=== PATIENT | female | born 1980 | race Two or more races ===

== ENCOUNTER 2019-07-01 10:37 | Emergency (ER) | payer OTHER ==
--- NOTE | 2019-07-01 10:50 | ER Document Report ---
ED Medical Screen (RME) - General Chief Complaint: Cough Stated Complaint: COUGH,CONGESTION Time Seen by Provider: 07/01/19 10:44 Mode of Arrival: Ambulatory Information source: Patient Notes: 39-year-old female patient presenting to the emergency department multiple complaints. Complaint #1 is cough, congestion and body aches that have been ongoing for 2 weeks. Patient reports no fevers currently but did have a fever about a week ago. Complaint #2 is mid to low abdominal pain, left-sided vaginal pain and occasional dysuria. Patient reports the symptoms have been ongoing for 2 days. Patient does report history of asthma, she is concerned she may have bronchitis. Exam: Lung sounds clear and equal bilaterally, no increased work of breathing. I have greeted and performed a rapid initial assessment of this patient. A comprehensive ED assessment and evaluation of the patient, analysis of test results and completion of the medical decision making process will be conducted by additional ED providers. I have specifically instructed the patient or family members with the patient to immediately return to any nursing staff should anything change in the patient's condition or with their chief complaint. Physical Exam - Vital signs Vitals: Temp Pulse Resp BP Pulse Ox 98.7 F 91 18 143/80 H 100 07/01/19 10:44 07/01/19 10:44 07/01/19 10:44 07/01/19 10:44 07/01/19 10:44 Course - Vital Signs Vital signs: Temp Pulse Resp BP Pulse Ox 98.7 F 91 18 143/80 H 100 07/01/19 10:44 07/01/19 10:44 07/01/19 10:44 07/01/19 10:44 07/01/19 10:44
[2019-07-01 11:30] LABS: APPEARANCE,URINE CLOUDY; BILIRUBIN,URINE NEGATIVE (NEGATIVE); COLOR,URINE YELLOW; GLUCOSE, URINE NEGATIVE (NEGATIVE); KETONES,URINE NEGATIVE (NEGATIVE); LEUKOCYTE ESTERASE,URINE LARGE (NEGATIVE); NITRITE,URINE NEGATIVE (NEGATIVE); PROTEIN,URINE 30 mg/dL (NEGATIVE); URINE SPECIFIC GRAVITY 1.028; UROBILINOGEN,URINE NEGATIVE mg/dL (<2.0)
--- NOTE | 2019-07-01 11:32 | RADIOLOGY REPORT (SQ) ---
EXAM DESCRIPTION: CHEST 2 VIEWS COMPLETED DATE/TIME: 07/01/2019 11:22 am REASON FOR STUDY: cough x2 weeks COMPARISON: None. EXAM PARAMETERS: NUMBER OF VIEWS: two views TECHNIQUE: Digital Frontal and Lateral radiographic views of the chest acquired. RADIATION DOSE: NA LIMITATIONS: none FINDINGS: LUNGS AND PLEURA: No opacities, masses or pneumothorax. No pleural effusion. MEDIASTINUM AND HILAR STRUCTURES: No masses or contour abnormalities. HEART AND VASCULAR STRUCTURES: Heart normal size. No evidence for failure. BONES: No acute findings. HARDWARE: None in the chest. OTHER: No other significant finding. IMPRESSION: NO ACUTE RADIOGRAPHIC FINDING IN THE CHEST. TECHNICAL DOCUMENTATION: JOB ID: [id number] 2010 [employer]- All Rights Reserved Reading location - IP/workstation name: [email or web address]
[2019-07-01 11:52] LABS: ABSOLUTE BASOPHILS # (AUTO) 0.1 10^3/uL (0.0-0.2); ABSOLUTE EOSINOPHILS # (AUTO) 0.3 10^3/uL (0.0-0.6); ABSOLUTE LYMPHOCYTES (AUTO) 1.7 10^3/uL (0.5-4.7); ABSOLUTE MONOCYTES (AUTO) 0.6 10^3/uL (0.1-1.4); ABSOLUTE NEUT (AUTO) 8.3 10^3/uL (1.7-8.2); HEMATOCRIT 40.1 % (36.0-47.0); HEMOGLOBIN 13.3 g/dL (12.0-15.5); LYMPHOCYTES % (AUTO) 15.6 % (13-45); MEAN CORPUSCULAR HEMOGLOBIN 28.6 pg (27.0-33.4); MEAN CORPUSCULAR HGB CONC 33.1 g/dL (32.0-36.0); MEAN CORPUSCULAR VOLUME 86 fl (80-97); MONOCYTES % (AUTO) 5.3 % (3-13); PLATELET COUNT 353 10^3/uL (150-450); RED BLOOD COUNT 4.64 10^6/uL (3.72-5.28); RED CELL DISTRIBUTION WIDTH 13.7 % (11.5-14.0); SEGMENTED NEUTROPHILS % (AUTO) 75.1 % (42-78); TOTAL CELLS COUNTED % (AUTO) 100 %
--- NOTE | 2019-07-01 11:55 | ER Document Report ---
ED General - General Chief Complaint: Cough Stated Complaint: COUGH,CONGESTION Time Seen by Provider: 07/01/19 10:44 Primary Care Provider: HOSEA DAIGLE MD [ACTIVE STAFF] - Follow up as needed Mode of Arrival: Ambulatory Notes: 39-year-old woman presents to the emergency department with a complaint of cough and congestion for the last week. She states that she traveled here from [place] and has had a worsening cough. She has a history of asthma has been using her inhalers, using [id number] medications for cough without improvement. She does note a tickling sensation in her throat and has not been using decongestants of any kind. She denies allergies to medications and has a history of bronchitis in the past. She also complains of a discomfort in the abdominal area. She is concerned about her ability to get as she has been trying without success. She denies dysuria, fever, back pain. TRAVEL OUTSIDE OF THE [place] IN LAST 30 DAYS: No - Related Data Allergies/Adverse Reactions: No Known Allergies Allergy (Unverified 07/01/19 10:50) Home Medications: Maxair Past Medical History - General Information source: Patient - Social History Smoking Status: Never Smoker Family History: Reviewed & Not Pertinent Patient has suicidal ideation: No Patient has homicidal ideation: No Review of Systems - Review of Systems Notes: Constitutional: Negative for fever. HENT: Negative for sore throat. Eyes: Negative for visual changes. Cardiovascular: Negative for chest pain. Respiratory: + Cough, no shortness of breath. Gastrointestinal: Negative for abdominal pain, vomiting or diarrhea. Genitourinary: + Suprapubic pain episodes. Musculoskeletal: Negative for back pain. Skin: Negative for rash. Neurological: Negative for headaches, weakness or numbness. 10 point ROS negative except as marked above and in HPI. Physical Exam - Vital signs Vitals: Temp Pulse Resp BP Pulse Ox 98.7 F 91 18 143/80 H 100 07/01/19 10:44 07/01/19 10:44 07/01/19 10:44 07/01/19 10:44 07/01/19 10:44 - Notes Notes: PHYSICAL EXAMINATION: Physical Exam: General: Well-nourished well-developed 39-year-old woman in no acute distress HEENT: NC/AT, pupils equal round and reactive to light, MM moist,nares clear, oropharynx clear, airway patent Neck: supple, no adenopathy, no masses. Good range of motion Lungs: clear, no wheezing, no rales no rhonchi CVS: Regular rate and rhythm no murmur gallop or rub Abdomen: Soft, active, nontender, no masses, no hepatosplenomegaly Ext: No edema, clubbing or cyanosis. Neuro: Alert and responsive, moving all 4 extremities on command, cranial nerves intact, no focal findings Skin: Intact no open lesions, no rash PSYCH: Normal mood, normal affect. Course - Vital Signs Vital signs: Temp Pulse Resp BP Pulse Ox 98.7 F 86 18 133/77 H 99 07/01/19 12:39 07/01/19 12:39 07/01/19 12:39 07/01/19 12:39 07/01/19 12:39 - Laboratory Result Diagrams: 07/01/19 11:42 07/01/19 11:42 Laboratory results interpreted by me: 07/01/19 07/01/19 07/01/19 11:07 11:42 11:42 WBC 11.0 H Absolute Neuts (auto) 8.3 H Creatinine 0.51 L AST 38 H ALT 43 H Urine Protein 30 H Ur Leukocyte Esterase LARGE H Urine Ascorbic Acid 40 H 07/01/19 12:32 I have reviewed laboratory data and used this information for the treatment decisions regarding the patient. - Diagnostic Test Radiology reviewed: Image reviewed, Reports reviewed Discharge - Discharge Clinical Impression: Bronchitis, Cough UTI (urinary tract infection) Qualifiers: Urinary tract infection type: site unspecified Hematuria presence: without hematuria Qualified Code(s): N39.0 - Urinary tract infection, site not specified Condition: Good Disposition: HOME, SELF-CARE Instructions: Bronchitis ([facility]), Urinary Tract Infection ([facility]) Additional Instructions: You are diagnosed with bronchitis and UTI in the emergency department today. You been given a prescription for antibiotic which will cover infection in both areas as well as a prescription for a decongestant cough medication. Please take the medications until completed. You have voiced a concern about your [employer] health and wanted a referral to [employer] for an evaluation. Dr. Daigle is the [employer] on-call today. I will give you the information regarding the referral and you can make an appointment as the time permits. Please return to the emergency department if you have further difficulties or concerns. Prescriptions: Cefdinir 300 mg PO BID #10 capsule Desloratadine/Pseudoephedrine [Clarinex-D 12 Hour Tablet] 1 each PO BID #10 tbmp.12hr Promethazine/Dextromethorphan [Promethazine-Dm Syrup] 10 ml PO Q4 PRN #240 syrup PRN Reason: Cough Referrals: HOSEA DAIGLE MD [ACTIVE STAFF] - Follow up as needed
[2019-07-01 12:07] LABS: ALBUMIN 4.5 g/dL (3.5-5.0); ALKALINE PHOSPHATASE 73 U/L (38-126); ANION GAP 12 (5-19); ASPARTATE AMINO TRANSFERASE 38 U/L (14-36); BILIRUBIN,DIRECT 0.3 mg/dL (0.0-0.4); BILIRUBIN,TOTAL 0.5 mg/dL (0.2-1.3); BLOOD UREA NITROGEN 7 mg/dL (7-20); CALCIUM 9.4 mg/dL (8.4-10.2); CARBON DIOXIDE 25 mmol/L (22-30); CHLORIDE 104 mmol/L (98-107); GLUCOSE 95 mg/dL (75-110); TOTAL PROTEIN 8.2 g/dL (6.3-8.2)
[2019-07-01 12:40] VITALS: BP 133/77
== END 2019-07-01 13:06 | disposition home or self-care (01) ==
LOC: ER 10:37
DX: J45.909 Unspecified asthma, uncomplicated (principal); R05 Cough; Z79.899 Other long term (current) drug therapy; R09.89 Other specified symptoms and signs involving the circulatory and respiratory systems; R10.30 Lower abdominal pain, unspecified; N39.0 Urinary tract infection, site not specified
CPT/HCPCS: 36415; 71046; 80053; 81001; 84703; 85025; 99283